=== PATIENT | female | born 1960 | race Asian ===

== ENCOUNTER 2017-07-06 11:03 | Outpatient (CLI) | payer OTHER | END 2017-07-06 11:04 | disposition home or self-care (01) | LOC: BICMAMMO 11:03 | PROVIDERS: ATTEND Family Medicine | DX: Z12.31 Encounter for screening mammogram for malignant neoplasm of breast (principal); Z78.0 Asymptomatic menopausal state; M81.0 Age-related osteoporosis without current pathological fracture | CPT/HCPCS: 77066; 77080; G0279 ==

== ENCOUNTER 2018-06-21 05:56 | Day surgery (SDC) | payer OTHER ==
[2018-06-07 08:15] VITALS: BMI 16.2
[2018-06-21] MEDS ORDERED: PROPOFOL 20 ML ONE ×2 (06:33→08:27)
[2018-06-21] MEDS ORDERED: Midazolam HCl 2 mg/2 ml Vial ONE (07:10)
[2018-06-21] MEDS ORDERED: Ketamine 50 MG/ML (10ML VIAL) ONE (07:10)
[2018-06-21] MEDS ORDERED: Fentanyl 100 MCG/2 ML VIAL ONE (07:10)
[2018-06-21] MEDS ORDERED: Ondansetron PF 4 MG/2 ML Vial ONE ×2 (08:28→16:12)
[2018-06-21] MEDS ORDERED: Dexamethasone 20 MG/5 ML VIAL ONE ×2 (08:28→16:12)
--- NOTE | 2018-06-21 10:36 | OP ---
DATE OF PROCEDURE: 06/21/2018 PREOPERATIVE DIAGNOSIS: Left knee lateral meniscus tear. POSTOPERATIVE DIAGNOSIS: Left knee lateral meniscus tear. ANESTHESIA: TIVA, local. BLOOD LOSS: Minimal. SPECIMEN: None. DRAINS: None. COMPLICATIONS: None. FINDINGS OF SURGERY: No significant arthritis. Intact ACL. Severely macerated tear of the entire lateral meniscus. Scope was placed in the lateral portal and probe was placed in the medial portal. Findings were as described above. Medial meniscus probed and found to be stable. I performed a complete lateral meniscectomy using narciso and baskets. Her lateral meniscus had torn all the way at the popliteus hiatus. There was no hoop stability and therefore we performed complete meniscectomy. The knee was irrigated and drained and sterile dressing was applied. There were no complications. Job ID: [id number]
[2018-06-21] MEDS ORDERED: Bupivacaine HCl 0.5%/Epinephrine 1:200,000/PF 30 ml Vial ONE (14:57)
[2018-06-21] MEDS ORDERED: Lidocaine 2% w/Epinephrine 1:200K 20 ML VIAL ONE (14:57)
[2018-06-21] MEDS ORDERED: Ketorolac Tromethamine 30 MG/ML VIAL ONE (16:12)
== END 2018-06-21 10:30 | disposition home or self-care (01) ==
LOC: SDC 05:56
PROVIDERS: ATTEND Orthopaedic Surgery
PROC: 0SBD4ZZ Excision of Left Knee Joint, Percutaneous Endoscopic Approach (ICD-10-PCS; principal; 2018-06-21)
DX: S83.282A Other tear of lateral meniscus, current injury, left knee, initial encounter (principal); I34.1 Nonrheumatic mitral (valve) prolapse; M85.80 Other specified disorders of bone density and structure, unspecified site; Z79.899 Other long term (current) drug therapy; Z88.8 Allergy status to other drugs, medicaments and biological substances; Z91.018 Allergy to other foods; Z98.890 Other specified postprocedural states
CPT/HCPCS: J0670; J1100; J1885; J2250; J2405; J2704; J3010

== ENCOUNTER 2018-07-08 09:40 | Outpatient (CLI) | payer OTHER ==
--- NOTE | 2018-07-08 12:36 | BD ---
DEXA BONE SCAN: HISTORY: Postmenopausal. Age-related osteoporosis. COMPARISON: Exam from [facility] from 07/06/2017. FINDINGS: A DEXA bone scan is performed using a hologic bone mineral density unit. LUMBAR SPINE BMD (g/cm2) T-SCORE Z-SCORE L1 0.73 -2.4 -1.1 L2 0.75 -2.5 -1.2 L3 0.78 -2.8 -1.4 L4 0.78 -2.5 -1.1 COMPOSITE 0.76 -2.6 -1.2 The bone mineral density is very similar to previous comparison exam, when the patient had a bone min eral density of 0.77, a T-score of -2.5, and a Z-score of -1.2. Findings compatible with osteoporosis. LEFT HIP BMD (g/cm2) T-SCORE Z-SCORE FEMORAL NECK 0.55 -2.6 -1.4 COMPOSITE 0.79 -1.3 -0.3 Findings suggest slight improved bone mineral density of the left hip, compared to the previous exam. Findings compatible with osteoporosis. IMPRESSION: Decreased bone mineral density. Bone mineral density suggests changes of osteoporosis. The patient does have an increased risk for osteoporotic fractures. POS: YELENA
--- NOTE | 2018-07-09 14:59 | MMO ---
FILMS COMPARED: The present examination has been compared to prior imaging studies performed on 05/27/2007, 10/24/2011, 06/24/2014 and 07/04/2016. MAMMOGRAM FINDINGS: The breasts are heterogeneously dense, which could obscure a lesion on mammography. There are no suspicious masses, calcifications or areas of architectural distortion. IMPRESSION: THERE IS NO MAMMOGRAPHIC EVIDENCE OF MALIGNANCY. A ROUTINE FOLLOW-UP MAMMOGRAM IN 1 YEAR IS RECOMMENDED. ACR BI-RADS Category 1 - Negative
== END 2018-07-08 09:41 | disposition home or self-care (01) ==
LOC: BICMAMMO 09:40
PROVIDERS: ATTEND Family Medicine
DX: Z12.31 Encounter for screening mammogram for malignant neoplasm of breast (principal); M85.80 Other specified disorders of bone density and structure, unspecified site; Z78.0 Asymptomatic menopausal state
CPT/HCPCS: 77063; 77067; 77080

== ENCOUNTER 2019-07-10 09:57 | Outpatient (CLI) | payer OTHER ==
--- NOTE | 2019-07-10 11:42 | BD ---
DEXA BONE DENSITOMETRY: (Dual energy X-ray Absorptiometry) DATE: 07/10/2019 HISTORY: 59-year-old female for follow-up, age-related, postmenopausal, osteoporosis screening examinati on. Height: 58 Weight: 78 lbs Age of menopause: 49 COMPARISON: 07/08/2018. FINDINGS: The bone mineral density (BMD) is given in grams per square centimeter (g/cm2): LUMBAR SPINE: BMD(g/cm2) T-score Z-score L1: 0.750 -2.2 -0.9 L2: 0.807 -2.0 -0.6 L3: 0.814 -2.5 -1.0 L4: 0.856 -1.9 -0.3 Total: 0.809 -2.2 -0.7 Change in BMD compared to previous DEXA: +6.3% HIP: Femoral neck: 0.580 -2.4 -1.1 Total: 0.813 -1.1 -0.1 Change in BMD compared to previous DEXA: +3.1% FRAX WHO Fracture Risk Assessment Tool: 10 Year Fracture Risk * Major osteoporotic fracture: 4.8% Hip fracture: 0.9% Reported Risk Factors: [place](), Neck BMD=0.580, BMI=16.3 * Fracture probability is calculated for an untreated patient. Fracture probability may be lower if the patient has received treatment. IMPRESSION: 1. The mean bone mineral density of the lumbar spine is osteopenic. Fracture risk is increased. 2. The bone mineral density of the femoral neck is osteopenic. Fracture risk is increased. DIVYA Mercado POS: LASHELL
--- NOTE | 2019-07-10 13:45 | MMO ---
Bilateral MAMMO Bilat Screen [facility]. CLINICAL HISTORY: Patient is 59 years old and is seen for screening. The patient has no family history of breast cancer. The patient has no personal history of cancer. VIEWS: The views performed were: bilateral craniocaudal with tomosynthesis and bilateral mediolateral oblique with tomosynthesis. FILMS COMPARED: The present examination has been compared to prior imaging studies performed at [facility] on 07/06/2017 and 07/08/2018, and at [facility] on 07/04/2016. This study has been interpreted with the assistance of computer-aided detection. MAMMOGRAM FINDINGS: The breasts are heterogeneously dense, which could obscure a lesion on mammography. There are no suspicious masses, suspicious calcifications, or new areas of architectural distortion. IMPRESSION: THERE IS NO MAMMOGRAPHIC EVIDENCE OF MALIGNANCY. A ROUTINE FOLLOW-UP MAMMOGRAM IN 1 YEAR IS RECOMMENDED. THE RESULTS OF THIS EXAM WERE SENT TO THE PATIENT. ACR BI-RADS Category 1 - Negative MAMMOGRAPHY NOTE: 1. A negative mammogram report should not delay a biopsy if a dominant of clinically suspicious mass is present. 2. Approximately 10% to 15% of breast cancers are not detected by mammography. 3. Adenosis and dense breasts may obscure an underlying neoplasm. Reported by: JOSEPH STANFORD MD Electonically Signed: [id number]
== END 2019-07-10 09:58 | disposition home or self-care (01) ==
LOC: BICMAMMO 09:57
PROVIDERS: ATTEND Family Medicine
DX: Z12.31 Encounter for screening mammogram for malignant neoplasm of breast (principal); M81.0 Age-related osteoporosis without current pathological fracture; M85.89 Other specified disorders of bone density and structure, multiple sites
CPT/HCPCS: 77063; 77067; 77080

== ENCOUNTER 2020-07-14 07:45 | Outpatient (CLI) | payer OTHER | END 2020-07-14 07:46 | disposition home or self-care (01) | LOC: BICMAMMO 07:45 | PROVIDERS: ATTEND Family Medicine | DX: Z12.31 Encounter for screening mammogram for malignant neoplasm of breast (principal); M81.0 Age-related osteoporosis without current pathological fracture; M85.88 Other specified disorders of bone density and structure, other site; M85.852 Other specified disorders of bone density and structure, left thigh | CPT/HCPCS: 77063; 77067; 77080 ==

== ENCOUNTER 2022-12-27 09:01 | Outpatient (CLI) | payer BC | END 2022-12-27 09:02 | disposition home or self-care (01) | LOC: BICMRI 09:01 | PROVIDERS: ATTEND Orthopaedic Surgery Hand Surgery | DX: S52.125A Nondisplaced fracture of head of left radius, initial encounter for closed fracture (principal); M24.00 Loose body in unspecified joint; M19.022 Primary osteoarthritis, left elbow ==

== ENCOUNTER 2023-08-01 09:15 | Outpatient (CLI) | payer BC | END 2023-08-01 09:16 | disposition home or self-care (01) | LOC: BICMAMMO 09:15 | PROVIDERS: ATTEND Family Medicine | DX: Z12.31 Encounter for screening mammogram for malignant neoplasm of breast (principal); M85.89 Other specified disorders of bone density and structure, multiple sites | CPT/HCPCS: 77063; 77067; 77080 ==

== ENCOUNTER 2023-12-05 08:33 | Outpatient (CLI) | payer BC | END 2023-12-05 08:34 | disposition home or self-care (01) | LOC: BICMRI 08:33 | PROVIDERS: ATTEND Orthopaedic Surgery | DX: M75.121 Complete rotator cuff tear or rupture of right shoulder, not specified as traumatic (principal); M19.011 Primary osteoarthritis, right shoulder ==